=== PATIENT | female | born 1940 | race Caucasian/White ===

== ENCOUNTER 2023-02-25 11:35 | Emergency (ER) | payer MEDICARE, OTHER ==
[~2023-02-25] VITALS: Ht 160 cm; Wt 67.6 kg
[2023-02-25 11:35] VITALS: BP 156/52; PULSE 74; RESP 18; TEMP 97.7; O2SAT 93
[2023-02-25 12:33] LABS: INFLUENZA VIRUS A ANTIGEN NEGATIVE (NEG); INFLUENZA VIRUS B ANTIGEN NEGATIVE (NEG)
[2023-02-25] MEDS ORDERED: TORADOL IM STA (12:51)
[2023-02-25] MEDS ORDERED: TORADOL ONE (12:57)
[2023-02-25 13:03] VITALS: BP 135/53; PULSE 58; RESP 18; TEMP 97.7; O2SAT 93
== END 2023-02-25 13:04 | disposition home or self-care (01) ==
LOC: ER 11:35
DX: B34.9 Viral infection, unspecified (principal); E07.9 Disorder of thyroid, unspecified; E11.9 Type 2 diabetes mellitus without complications; I10 Essential (primary) hypertension; Z90.49 Acquired absence of other specified parts of digestive tract; Z90.710 Acquired absence of both cervix and uterus; Z90.89 Acquired absence of other organs; Z20.822 Contact with and (suspected) exposure to COVID-19
CPT/HCPCS: 99283; 87426; 96372; 87070; 87880; 87804 ×2; J1885

== ENCOUNTER 2023-11-12 13:01 | Emergency (ER) | payer OTHER ==
[2023-11-12] MEDS ORDERED: PANT40TA3 PO (17:53)
[2023-11-12] MEDS ORDERED: CLOP-28 PO (17:53)
[2023-11-12] MEDS ORDERED: CELE200C PO (17:53)
[2023-11-12] MEDS ORDERED: HYDR12.58 PO (17:53)
[2023-11-12] MEDS ORDERED: LEVO125T6 PO (17:53)
[2023-11-19] MEDS ORDERED: AMOX1TAB60 PO (10:22)
== END 2023-11-12 16:12 | disposition critical access hospital (66) ==
LOC: ER 13:01
DX: K46.9 Unspecified abdominal hernia without obstruction or gangrene (principal)
CPT/HCPCS: 99285; 74177; 71045; 87086; 80053; 85025; 36415; 84484; 87040; 83605; 81001; 83690; 93005; J2270; J7030; J3490; J2405; J3010; Q9965

== ENCOUNTER 2024-06-19 07:48 | Emergency (ER) | payer MEDICARE, OTHER ==
[~2024-06-19] VITALS: Ht 160 cm; Wt 66.2 kg
[~2024-06-19 07:48] MED LIST: AMOX1TAB60 PO; CELE200C PO; CLOP-28 PO; HYDR12.58 PO; LEVO125T6 PO; PANT40TA3 PO
[2024-06-19 07:54] VITALS: BP 195/82; PULSE 67; RESP 18; TEMP 97.9; O2SAT 97
[2024-06-19] MEDS ORDERED: ROCEPHIN ONE (08:10)
[2024-06-19] MEDS ORDERED: KENALOG-40 ONE (08:10)
[2024-06-19] MEDS: KENALOG-40 IM STA (08:16)
[2024-06-19] MEDS: ROCEPHIN IM STA (08:16)
[2024-06-19 08:31] LABS: INFLUENZA VIRUS A ANTIGEN NEGATIVE (NEG); INFLUENZA VIRUS B ANTIGEN NEGATIVE (NEG)
[2024-06-19] MEDS ORDERED: APRESOLINE ONE (08:42)
[2024-06-19] MEDS: APRESOLINE IV STA (08:47)
[2024-06-19 09:04] LABS: BASOPHIL # 0.1 10^3/uL (0.0-0.1); BASOPHIL % 0.6 % (0.1-1.2); EOSINOPHIL # 0.2 10^3/uL (0.0-0.2); EOSINOPHIL % 1.8 % (0.0-5.0); HEMATOCRIT(ML) 43.7 % (36.0-46.0); HEMOGLOBIN 14.8 g/dL (12.0-15.0); LYMPHOCYTES # 2.03 10^3/uL1 (1.0-4.8); LYMPHOCYTES % 18.2 % (24.0-44.0); MEAN CORP HGB 30.8 pg (26-34); MEAN CORP HGB CONCENTRATION 33.9 g/dL (33-36.5); MONOCYTES % 8.7 % (5.0-12.0); NEUTROPHIL # 7.9 10^3/uL (1.8-7.7); NEUTROPHILS % 70.6 % (41.0-85.0); PLATELET COUNT 240 10^3/uL (150-400); RED CELL DISTRIBUTION WIDTH 13.5 % (11.5-14.5); WHITE BLOOD CELL 11.1 10^3/uL (4.5-11.0)
[2024-06-19 09:06] LABS: +ADD MANUAL DIFF(NO CHRG) NO
[2024-06-19 09:16] LABS: ANION GAP 14.8; BUN/CREATININE RATIO 18.75 (10.0-20.0); CALCIUM 9.5 mg/dL (8.4-10.5); CARBON DIOXIDE 24.2 mmol/L (20.0-32); CREATININE SERUM 0.96 mg/dL (0.59-1.40); EST GFR, NON-AA 55.8 (>/=60)
[2024-06-19 09:42] VITALS: BP 174/81; PULSE 72; RESP 18; O2SAT 95
== END 2024-06-19 09:53 | disposition home or self-care (01) ==
LOC: ER 07:48
DX: H66.91 Otitis media, unspecified, right ear (principal); J04.10 Acute tracheitis without obstruction; J04.0 Acute laryngitis; J02.9 Acute pharyngitis, unspecified; I10 Essential (primary) hypertension; K21.9 Gastro-esophageal reflux disease without esophagitis; E07.9 Disorder of thyroid, unspecified; Z90.49 Acquired absence of other specified parts of digestive tract; Z90.710 Acquired absence of both cervix and uterus; Z90.89 Acquired absence of other organs; Z20.822 Contact with and (suspected) exposure to COVID-19
CPT/HCPCS: 99285; 96374; 71045; 87426; 85025; 36415; 80048; 87070; 87880; 87804 ×2; 93005; 96372; J0360; J3301; J0696